=== PATIENT | female | born 1990 | race Two or more races ===

== ENCOUNTER → 2022-11-16 09:13 | Outpatient (BNVA) | payer OTHER, SELFPAY | PROVIDERS: PCP Nurse Practitioner Family; Visit Provider Physician Assistant ==

== ENCOUNTER → 2022-11-23 15:08 | Outpatient (BNVA) | payer OTHER, SELFPAY | PROVIDERS: PCP Nurse Practitioner Family; Visit Provider Physician Assistant Surgical | DX: E66.01 Morbid (severe) obesity due to excess calories (principal); Z68.42 Body mass index [BMI] 45.0-49.9, adult | CPT/HCPCS: 99202 ==

== ENCOUNTER 2022-12-02 10:03 | Outpatient (REF) | payer OTHER, SELFPAY ==
--- NOTE | ~2022-12-02 | XR_ITS ---
EXAMINATION: XR CHEST CLINICAL INFORMATION: Obesity COMPARISON: None available. TECHNIQUE: 2 views of the chest were obtained. FINDINGS: No significant abnormality is noted involving the heart, lungs, mediastinum, bony thorax or soft tissues. XR/XR chest 2V IMPRESSION: Unremarkable examination.
[2022-12-02 10:22] LABS: MANUAL DIFF FLAG NO
[2022-12-02 11:02] LABS: Basophils Percent Auto 0.3 % (0-2); Eosinophils Absolute Auto 0.4 X10*3/uL (0.0-0.4); Hematocrit 33.8 % (37.0-47.0); Hemoglobin 10.1 g/dl (12.0-16.0); Imm Gran Abs Auto 0.02 X10*3/uL (0.00-0.03); Imm Gran Pct Auto 0.2 % (0.0-0.4); Lymphocytes Absolute Auto 2.8 X10*3/uL (1.2-4.9); Lymphocytes Percent Auto 30.6 % (20-40); Mean Corpuscular HGB Conc 29.9 g/dl (31.0-35.0); Mean Corpuscular Hemoglobin 20.9 pg (27.0-33.0); Mean Platelet Volume 10.5 fL (9.4-12.3); Monocytes Absolute Auto 0.3 X10*3/uL (0.1-1.2); Monocytes Percent Auto 3.4 % (2-11); Neutrophils Absolute Auto 5.6 x10*3/uL (2.0-8.3); Neutrophils Percent Auto 61.5 % (45-73); Platelet Count 290 X10*3/uL (160-400); Red Blood Count 4.83 X10*6/uL (4.20-5.50); Red Cell Distribution Width 16.4 % (11.0-16.0); White Blood Count 9.1 X10*3/uL (4.8-10.8)
[2022-12-02 11:11] LABS: Estimated Average Glucose 103 mg/dL; Hemoglobin A1c % 5.2 %
[2022-12-02 12:23] LABS: Alanine Aminotransferase 13 U/L (0-31); Alkaline Phosphatase 73 U/L (39-117); Anion Gap 10 (12-20); Aspartate Amino Transferase 10 U/L (5-31); Bilirubin Total 0.3 mg/dL (0.0-1.0); Blood Urea Nitrogen 12 mg/dL (9-16); Carbon Dioxide 25 mmol/L (22-29); Chloride 107 mmol/L (96-108); Cholesterol 106 mg/dL; Estimated Glomerular Filt Rate > 60; Glucose Random 85 mg/dL (60-115); HDL Cholesterol 37 mg/dL; Iron 27 mcg/dL (30-160); LDL Cholesterol Calculated 55 mg/dl; Percent Iron Saturation 8 % (15-50); Potassium 4.4 mmol/L (3.3-5.1); Sodium 138 mmol/L (135-145); Total Iron Binding Capacity 338 mcg/dL (228-428); Total Protein 7.1 g/dL (6.5-8.0); Triglycerides 73 mg/dL; Unsaturated Iron Binding 311 ug/dL
[2022-12-02 12:54] LABS: Ferritin 9 ng/mL (10-122); Folate 7.2 ng/mL (> or = 4.0); Insulin 21 uU/mL (2-29); TSH reflex Free T4 0.69 uIU/mL (0.32-4.0); Vitamin B12 427 pg/mL (200-900); Vitamin D 25-OH Total 27.2 ng/mL (>30)
[2022-12-06 15:24] LABS: Calcium (PTHI) 9.4 mg/dL (8.6-10.2); PTHI 50 pg/mL (16-77)
[2022-12-06 23:38] LABS: Zinc 54 mcg/dL (60-130)
[2022-12-09 01:14] LABS: Vitamin A 25 mcg/dL (38-98)
[2022-12-09 12:03] LABS: Vitamin B1 8 nmol/L (8-30)
== END 2022-12-02 10:04 | disposition home or self-care (01) ==
LOC: HO.LAB 10:03
PROVIDERS: PCP Nurse Practitioner Family; Visit Provider Physician Assistant Surgical
DX: E66.01 Morbid (severe) obesity due to excess calories (principal)
CPT/HCPCS: 36415; 71046; 80053; 80061; 82306; 82607; 82728; 82746; 83036; 83525; 83540; 83970; 84425; 84443; 84590; 84630; 85025; 86140

== ENCOUNTER → 2022-12-13 12:00 | Outpatient (BNVA) | payer OTHER, SELFPAY | PROVIDERS: PCP Nurse Practitioner Family; Visit Provider Counselor Mental Health ==

== ENCOUNTER 2022-12-14 09:24 | Outpatient (REF) | payer OTHER, SELFPAY ==
[2022-12-16 14:54] LABS: H Pylori Breath Test Negative (Negative)
== END 2022-12-14 09:25 | disposition home or self-care (01) ==
LOC: HO.LNP 09:24
PROVIDERS: PCP Nurse Practitioner Family; Visit Provider Physician Assistant Surgical
DX: Z11.2 Encounter for screening for other bacterial diseases (principal); E66.01 Morbid (severe) obesity due to excess calories
CPT/HCPCS: 83013; 99211; 99212

== ENCOUNTER → 2022-12-23 09:33 | Outpatient (REF) | payer OTHER, SELFPAY ==
--- NOTE | 2022-12-23 09:40 | ECG_ITS ---
Test Reason : MORBID OBESITY Blood Pressure : / mmHG Vent. Rate : 060 BPM Atrial Rate : 060 BPM P-R Int : 138 ms QRS Dur : 078 ms QT Int : 418 ms P-R-T Axes : -09 032 002 degrees QTc Int : 418 ms Normal sinus rhythm Normal ECG No previous ECGs available Referred By: Arnulfo Castro Electronically Signed By:RASHAWN TAMAYO
== END ==
LOC: HO.CARD 09:33
PROVIDERS: Visit Provider Physician Assistant Surgical
DX: E66.01 Morbid (severe) obesity due to excess calories (principal)
CPT/HCPCS: 93005

== ENCOUNTER → 2023-01-17 10:43 | Outpatient (BNVA) | payer OTHER, SELFPAY | PROVIDERS: PCP Nurse Practitioner Family; Visit Provider Counselor Mental Health ==

== ENCOUNTER 2023-01-18 09:19 | Outpatient (REF) | payer OTHER, SELFPAY ==
--- NOTE | ~2023-01-18 | US_ITS ---
EXAMINATION: US COMPLETE ABDOMEN WITH LIVER ELASTOGRAPHY CLINICAL INFORMATION: Obesity. COMPARISON: None available. TECHNIQUE: Real-time imaging of the abdominal viscera. Noninvasive ultrasound liver fibrosis assessment is performed using [employer] ElastPQ point quantification shear wave elastography (2D-SWE) with a C5-2 MHz transducer. Multiple elastography samples are obtained. FINDINGS: PANCREAS: Limited. The visualized pancreatic head and proximal body are normal in appearance. The remainder of the pancreas is obscured from visualization by the overlying bowel gas. ABDOMINAL AORTA: The proximal, middle, and distal aortic segments are normal in caliber. INFERIOR VENA CAVA: Visualized portions are normal. LIVER: There is mild hepatomegaly. The liver demonstrates normal contour and generally increased echogenicity. No focal lesion or intrahepatic biliary duct dilatation. The right lobe measures 17.3 cm in length. The left lobe measures 11.5 cm in length. Portal flow is towards the liver (hepatopetal). Shear wave liver elastography median stiffness is 1.23 m/s (reference: normal median stiffness is 1.3 m/s or less). IQR/median stiffness to assess sampling precision is 0.04 (reference: good quality data set is IQR/median stiffness of 0.15 or less). GALLBLADDER: Normal. The gallbladder is physiologically distended without evidence of stones, sludge, polyps, wall thickening or pericholecystic fluid. COMMON BILE DUCT: Normal in caliber postcholecystectomy, measuring 0.9 cm in diameter. RIGHT KIDNEY: Normal. No hydronephrosis. No renal calculi or focal parenchymal lesions. The kidney measures 11.7 cm in maximum dimension. LEFT KIDNEY: Normal. No hydronephrosis. No renal calculi or focal parenchymal lesions. The kidney measures 11.9 cm in maximum dimension. SPLEEN: Normal. The spleen measures 10.0 cm in maximum dimension. FREE FLUID: None. US/US abdomen comp w elastography IMPRESSION: 1. There is mild hepatomegaly. 2. There is generalized increase in hepatic echotexture, consistent with fatty infiltration or hepatocellular disease. Please correlate clinically. No focal hepatic mass or intrahepatic biliary dilatation is seen. 3. Liver elastography: Measurements are consistent with a high probability of normal liver stiffness. 4. The gallbladder surgically absent. 5. Technically limited ultrasound examination the pancreas. REFERENCE: Society of Radiologists in Ultrasound Liver Stiffness Thresholds (2020): LIVER STIFFNESS THRESHOLDS: *Liver Stiffness equal or less than 1.3 m/s: High probability of being normal. *Liver Stiffness less than 1.7 m/s: In the absence of other known clinical signs, rules out compensated advanced chronic liver disease. *Liver Stiffness 1.7-2.1 m/s: Suggestive of compensated advanced chronic liver disease but need further test for confirmation. *Liver Stiffness over 2.1 m/s: Rules in compensated advanced chronic liver disease. *Liver Stiffness over 2.4 m/s: Suggestive of clinically significant portal hypertension. QUALITY OF DATA SET: *IQR/Median value equal or less than 0.15 implies a quality data set. *IQR/Median value over 0.15 implies a poor quality data set. SIGNIFICANT CHANGE FROM PRIOR EXAM: Significant change if liver stiffness measurement is 10% or greater from prior exam. OTHER CONSIDERATIONS: The stage of liver fibrosis may be overestimated in the setting of acute hepatitis, liver inflammation, elevated liver function tests, hepatic vascular congestion, obstructive cholestasis, non-fasting state, and infiltrative diseases such as amyloidosis and lymphoma. In some patients with NAFLD, the liver stiffness thresholds for compensated advanced chronic liver disease may be lower. In causes other than viral hepatitis and NAFLD, liver stiffness thresholds are not well established.
--- NOTE | ~2023-01-18 | FL_ITS ---
EXAMINATION: XR FLUOROSCOPY UPPER GI WITH AIR CLINICAL INFORMATION: Obesity COMPARISON: None available. TECHNIQUE: Upper GI was performed using thin and thick barium and effervescent granules FINDINGS: Esophageal motility is normal. No hernia or reflux. The stomach and duodenum are normal. No fold thickening, mass, ulcer or stricture. FLUOROSCOPY TIME: 0.3 minutes DOSE AREA PRODUCT: 4 ortiz per centimeter squared. Total dose 60 mgy. 20 one saved fluoroscopic images. FL/FL upper GI w air IMPRESSION: Unremarkable examination.
== END 2023-01-18 09:20 | disposition home or self-care (01) ==
LOC: HO.US 09:19
PROVIDERS: PCP Nurse Practitioner Family; Visit Provider Physician Assistant Surgical
DX: E66.01 Morbid (severe) obesity due to excess calories (principal)
CPT/HCPCS: 74246; 76705; 76981

== ENCOUNTER → 2023-02-02 09:02 | Outpatient (BNVA) | payer OTHER, SELFPAY | PROVIDERS: PCP Nurse Practitioner Family; Referring Provider Physician Assistant Surgical; Visit Provider Dietitian, Registered | DX: E66.01 Morbid (severe) obesity due to excess calories (principal); Z68.42 Body mass index [BMI] 45.0-49.9, adult | CPT/HCPCS: 97802 ==

== ENCOUNTER 2023-02-09 08:59 | Outpatient (AMB) | payer OTHER, SELFPAY ==
--- NOTE | 2023-02-09 09:02 | MHC.OFFVISWM ---
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 They were last seen in the office on 12/14/22, recorded weight at that time was 246.6 pounds, with a BMI of 46.6. Today's weight is 244.2 pounds and BMI is 46.1. There has been a weight loss of 4.8 pounds since initiating the surgical weight loss program on 11/23/22 with a total body weight loss of 1.9 %. Pre op work up completed as follows: SWL classes:? 0 BH appts: cleared-01/17/23 ? ? RD appts: needs f/u Labs: 12/02/22-iron def anemia, Low A,D,Zinc, B12:427 H. pylori: 12/14/22 CXR: 12/02/22-nad EKG: not yet done ABD U/S: 01/18/23-fatty liver UGI: 01/18/23-normal The patient reports no complaints of pain.? She states she is following the meal plan. 3 shakes (1 scoop each), bar, meal (4 forks, 4 forks) Current meal plan includes: 3 [employer] Protein shakes, (1 scoop in 8 oz low fat unsweetened almond milk each) First shake at 8am-10am Second shake at 12am-2pm 1 protein bar ([employer] Perfect bars) at 4pm-6pm. Dinner at 7pm (8 forks of protein and 8 forks of salad/vegetables). Another shake with 1 scoop in 8 oz unsweetened almond milk at 8pm-10pm. Drinking 80-96 oz of water Current exercise plan includes: gym 4 days per week, 300-350 calories per session, (stepper, elliptical, bike) PFSH Surgical History Hx of cholecystectomy Family History Mother Pre-diabetes High cholesterol Father Diabetes Sister No problems noted. Sister No problems noted. Brother No problems noted. Brother No problems noted. Son No problems noted. Daughter No problems noted. Social History Alcohol intake: never Patient Tobacco Use Status: Never used Tobacco Review of Systems Const All systems reviewed & are unremarkable except as noted in HPI and below Physical Exam Vital Signs: Last Vital Signs Temp 97.2 F 02/09/23 09:15 Pulse 70 02/09/23 09:15 BP 129/73 02/09/23 09:15 Pulse Ox 95 02/09/23 09:15 Oxygen Delivery Method Room Air 02/09/23 09:15 BMI result Body Mass Index 46.1 Const General: healthy appearing and no acute distress Resp Effort & Inspection: normal respiratory effort Auscultation: clear to auscultation bilaterally Cardio Rate: regular rate Rhythm: regular rhythm GI Auscultation: normal bowel sounds Extrem General: Yes normal to inspection Assessment & Plan Assessment & Plan (1) Morbid obesity: Code(s): E66.01 - Morbid (severe) obesity due to excess calories Plan: Encouraged to follow meal plan exactly. discussed increasing calories burned at the gym RTC 3 weeks and if making progress will refer back to RD. Coding Level of Care Code Est Pt Level 3 (82035) Diagnoses Morbid obesity E66.01 Time Spent (min) 20
[2023-02-09 09:15] VITALS: BP 129/73; PULSE 70; TEMP 36.2; O2SAT 95; BMI 46.1
== END 2023-02-09 09:37 | disposition home or self-care (01) ==
PROVIDERS: PCP Nurse Practitioner Family; Visit Provider Physician Assistant Surgical
DX: E66.01 Morbid (severe) obesity due to excess calories (principal); Z68.42 Body mass index [BMI] 45.0-49.9, adult
CPT/HCPCS: 99213

== ENCOUNTER → 2023-02-09 08:59 | Outpatient (BNVA) | payer OTHER, SELFPAY | PROVIDERS: PCP Nurse Practitioner Family; Visit Provider Physician Assistant Surgical | DX: E66.01 Morbid (severe) obesity due to excess calories (principal); Z68.42 Body mass index [BMI] 45.0-49.9, adult | CPT/HCPCS: 99212 ==